=== PATIENT | female | born 1940 | race Caucasian/White ===

== ENCOUNTER → 2016-10-21 | Outpatient (CLI) | payer MEDICARE, BC ==
[~2016-10-21] MED LIST: BIOTCAP PO; CHOL50006 PO; CYCL-36 PO; DIPH25 PO; FEXO180T PO; LACTCAP7 PO; LEVO.112 PO; LORTA5 PO; MAGN500T4 PO; MELA5TAB10 PO; PREM0.45 PO; PROP60CA PO; RANI150 PO; SUMA50 PO; TAB-TAB PO; TYLE500T PO; VITA100020 IJ; WELLTAB39 PO; Z.0.COMMODE-3:1
[2016-10-21 12:48] LABS: AUTOMATED NEUTROPHIL # 2.1 TH/MM3 (1.8-7.7); BASOPHIL % 0.9 % (0.0-2.0); EOSINOPHIL # 0.1 TH/MM3 (0-0.4); HEMATOCRIT 39.1 % (35.0-46.0); HEMO FLAGS DIFF FINAL; LYMPH % 44.6 % (9.0-44.0); LYMPHOCYTE # 2.1 TH/MM3 (1.0-4.8); MEAN CELL VOLUME 95.5 FL (80.0-100.0); MEAN CORPUSCULAR HEMOGLOBIN 31.8 PG (27.0-34.0); MEAN CORPUSCULAR HGB CONC 33.3 % (32.0-36.0); MONO % 8.5 % (0.0-8.0); PLATELET COUNT 186 TH/MM3 (150-450); RED BLOOD COUNT 4.09 MIL/MM3 (4.00-5.30); RED CELL DISTRIBUTION WIDTH 12.6 % (11.6-17.2); WHITE BLOOD COUNT 4.7 TH/MM3 (4.0-11.0)
[2016-10-21 13:24] LABS: ALKALINE PHOSPHATASE 52 U/L (45-117); ALT (GPT) 28 U/L (10-53); ANION GAP 7 MEQ/L (5-15); AST (GOT) 26 U/L (15-37); BICARBONATE 28.7 MEQ/L (21.0-32.0); BLOOD UREA NITROGEN 16 MG/DL (7-18); CHLORIDE 107 MEQ/L (98-107); GLOMERULAR FILTRATION RATE 70 ML/MIN (>89); GLUCOSE,FASTING 83 MG/DL (74-99); HDL CHOLESTEROL 71.7 MG/DL (40.0-60.0); LDL CHOLESTEROL 53 MG/DL (0-99); POTASSIUM 4.2 MEQ/L (3.5-5.1); SODIUM (NA) 143 MEQ/L (136-145); TOTAL BILIRUBIN ADULT 0.5 MG/DL (0.2-1.0)
[2016-10-21 16:50] LABS: HEMOGLOBIN A1a 1.2 %; HEMOGLOBIN A1b 0.8 %; HEMOGLOBIN Ao 86.5 %; HEMOGLOBIN F 0.9 %; HEMOGLOBIN LA1C 1.8 %; HEMOGLOBIN P3 3.4 %
== END ==
LOC: PLAB 10:18
PROVIDERS: ATTEND Family Medicine
DX: E55.9 Vitamin D deficiency, unspecified (principal); E03.8 Other specified hypothyroidism; E78.4 Other hyperlipidemia; R73.01 Impaired fasting glucose
CPT/HCPCS: 36415; 80053; 80061; 82306; 83036; 84439; 84443; 85025

== ENCOUNTER → 2017-04-28 | Outpatient (CLI) | payer MEDICARE, BC ==
[2017-04-28 13:56] LABS: AUTOMATED NEUTROPHIL # 1.5 TH/MM3 (1.8-7.7); BASOPHIL % 0.7 % (0.0-2.0); EOSINOPHIL # 0.1 TH/MM3 (0-0.4); EOSINOPHIL % 2.5 % (0.0-4.0); HEMATOCRIT 39.3 % (35.0-46.0); HEMO FLAGS DIFF FINAL; LYMPH % 49.3 % (9.0-44.0); LYMPHOCYTE # 1.9 TH/MM3 (1.0-4.8); MEAN CELL VOLUME 96.6 FL (80.0-100.0); MEAN CORPUSCULAR HEMOGLOBIN 32.4 PG (27.0-34.0); MEAN CORPUSCULAR HGB CONC 33.5 % (32.0-36.0); MONO % 8.2 % (0.0-8.0); NEUT % 39.3 % (16.0-70.0); PLATELET COUNT 207 TH/MM3 (150-450); RED BLOOD COUNT 4.06 MIL/MM3 (4.00-5.30); RED CELL DISTRIBUTION WIDTH 12.8 % (11.6-17.2); WHITE BLOOD COUNT 3.9 TH/MM3 (4.0-11.0)
[2017-04-28 14:07] LABS: ANION GAP 6 MEQ/L (5-15); AST (GOT) 34 U/L (15-37); BLOOD UREA NITROGEN 19 MG/DL (7-18); CHLORIDE 104 MEQ/L (98-107); GLOMERULAR FILTRATION RATE 81 ML/MIN (>89); GLUCOSE,FASTING 84 MG/DL (74-99); POTASSIUM 4.4 MEQ/L (3.5-5.1); SODIUM (NA) 138 MEQ/L (136-145)
[2017-04-28 14:08] LABS: ALT (GPT) 40 U/L (10-53)
[2017-04-28 14:34] LABS: ALKALINE PHOSPHATASE 52 U/L (45-117); HDL CHOLESTEROL 84.5 MG/DL (40.0-60.0); LDL CHOLESTEROL 66 MG/DL (0-99); TOTAL BILIRUBIN ADULT 0.6 MG/DL (0.2-1.0)
== END ==
LOC: PLAB 09:39
PROVIDERS: ATTEND Family Medicine
DX: E78.5 Hyperlipidemia, unspecified (principal); E03.9 Hypothyroidism, unspecified; E53.8 Deficiency of other specified B group vitamins; Z86.39 Personal history of other endocrine, nutritional and metabolic disease
CPT/HCPCS: 36415; 80053; 80061; 82607; 84443; 85025

== ENCOUNTER → 2017-10-18 | Outpatient (CLI) | payer MEDICARE, BC ==
[2017-10-18 14:17] LABS: AUTOMATED NEUTROPHIL # 2.5 TH/MM3 (1.8-7.7); BASOPHIL % 0.8 % (0.0-2.0); EOSINOPHIL # 0.1 TH/MM3 (0-0.4); HEMATOCRIT 38.5 % (35.0-46.0); HEMOGLOBIN 13.1 GM/DL (11.6-15.3); LYMPH % 35.6 % (9.0-44.0); LYMPHOCYTE # 1.7 TH/MM3 (1.0-4.8); MEAN CELL VOLUME 97.2 FL (80.0-100.0); MEAN CORPUSCULAR HEMOGLOBIN 33.2 PG (27.0-34.0); MEAN CORPUSCULAR HGB CONC 34.1 % (32.0-36.0); MEAN PLATELET VOLUME 7.9 FL (7.0-11.0); MONO % 9.2 % (0.0-8.0); MONOCYTE # 0.4 TH/MM3 (0-0.9); NEUT % 52.4 % (16.0-70.0); PLATELET COUNT 217 TH/MM3 (150-450); RED BLOOD COUNT 3.96 MIL/MM3 (4.00-5.30); RED CELL DISTRIBUTION WIDTH 13.2 % (11.6-17.2); WHITE BLOOD COUNT 4.8 TH/MM3 (4.0-11.0)
[2017-10-18 14:34] LABS: ALBUMIN 3.5 GM/DL (3.4-5.0); AST (GOT) 23 U/L (15-37); BICARBONATE 26.6 MEQ/L (21.0-32.0); BLOOD UREA NITROGEN 17 MG/DL (7-18); CALCIUM 8.6 MG/DL (8.5-10.1); CHLORIDE 106 MEQ/L (98-107); CHOLESTEROL 176 MG/DL (120-200); CREATININE 0.92 MG/DL (0.50-1.00); GLOMERULAR FILTRATION RATE 59 ML/MIN (>89); GLUCOSE,FASTING 87 MG/DL (74-99); SODIUM (NA) 139 MEQ/L (136-145)
[2017-10-18 14:44] LABS: ALKALINE PHOSPHATASE 48 U/L (45-117); ALT (GPT) 26 U/L (10-53); CHOLESTEROL/ HDL RATIO 2.25 RATIO; FREE T4 1.07 NG/DL (0.76-1.46); HDL CHOLESTEROL 78.1 MG/DL (40.0-60.0); LDL CHOLESTEROL 71 MG/DL (0-99); TOTAL BILIRUBIN ADULT 0.3 MG/DL (0.2-1.0); TOTAL PROTEIN 6.5 GM/DL (6.4-8.2); TRIGLYCERIDES 134 MG/DL (42-150)
== END ==
LOC: PLAB 10:17
PROVIDERS: ATTEND Family Medicine
DX: E78.5 Hyperlipidemia, unspecified (principal); E03.9 Hypothyroidism, unspecified; E55.9 Vitamin D deficiency, unspecified
CPT/HCPCS: 36415; 80053; 80061; 82306; 84439; 84443; 85025

== ENCOUNTER → 2017-11-02 | Outpatient (CLI) | payer MEDICARE, BC ==
[~2017-11-02] MED LIST changes: +BIOT10TA PO; +CHOL1CAP26 PO; +COMMODE 3-IN-11 MIS; +CYAN1000P SQ; +CYCL5TAB PO; +DIPH25CA PO; +FEXO15TA PO; +HYDR-3516 PO; +IMIT50TA PO; +LACTTAB8 PO; +LEVO100T5 PO; +LOPE-1 PO; +MAGN400T2 PO; +MAPA500C PO; +MELA5CAP3 PO; +MULT-65 PO; +PROP80CA PO; +RANI150T PO; +SUMA50TA2 PO; +SYNT112T PO
[2017-11-02 13:24] LABS: BACTERIA, URINE RARE /hpf; BILIRUBIN, URINE NEG (NEG); BLOOD, URINE TRACE (NEG); GLUCOSE,URINE NEG (NEG); KETONE, URINE NEG (NEG); MUCUS URINE FEW /lpf (OCC); NITRITE,URINE NEG (NEG); PH, URINE 5.5 (5.0-8.5); SQUAMOUS EPITHELIAL CELL URINE 6 /hpf (0-5); URINE COLOR YELLOW (YELLW/STRAW); URINE LEUKOCYTE ESTERASE NEG (NEG)
== END ==
LOC: PLAB 09:56
PROVIDERS: ATTEND Orthopaedic Surgery Orthopaedic Surgery of the Spine
DX: M50.30 Other cervical disc degeneration, unspecified cervical region (principal)
CPT/HCPCS: 81001

== ENCOUNTER 2017-11-09 11:18 | Inpatient (IN) | payer MEDICARE, BC ==
[~2017-11-09] VITALS: Ht 170.2 cm; Wt 70.2 kg
[~2017-11-09 11:18] MED LIST changes: -BIOT10TA PO; -BIOTCAP PO; -CHOL50006 PO; -COMMODE 3-IN-11 MIS; -CYCL-36 PO; -CYCL5TAB PO; -DIPH25 PO; -FEXO180T PO; -LACTCAP7 PO; -LEVO.112 PO; -LORTA5 PO; -MAGN400T2 PO; -MAGN500T4 PO; -MELA5TAB10 PO; -MULT-65 PO; -PROP60CA PO; -RANI150 PO; -SUMA50 PO; -SUMA50TA2 PO; -SYNT112T PO; -TAB-TAB PO; -TYLE500T PO; -VITA100020 IJ; -Z.0.COMMODE-3:1
[2017-11-09] MEDS ORDERED: LACTATED RINGER'S 1000 ML IV PRN (12:00)
[2017-11-09] MEDS ORDERED: CHLORHEXIDINE GLUCONATE 2 % 1 PACK (2 CLOTHS) TOPICAL PRN (12:00)
[2017-11-09] MEDS ORDERED: METOPROLOL TARTRATE 25 MG TAB PO PRN (12:00)
[2017-11-09] MEDS ORDERED: SODIUM CHLORID 0.9% 500 ML IV PRN (12:00)
[2017-11-09] MEDS ORDERED: POVIDONE IODINE 5% (ANTISEPSIS KIT) 4 APPLICATIONS EACH NARE PRN (12:00)
[2017-11-09] MEDS ORDERED: CHLORHEXIDINE GLUCONATE 4% SOLN 120 ML BTL TOPICAL SCH (12:15)
[2017-11-09] MEDS ORDERED: ceFAZolin 2 GM PREMIX 50 ML IV SCH (12:15)
[2017-11-09] MEDS ORDERED: VANCOMYCIN 1 GM/200 ML INJ 200 ML IV ONE (12:33)
[2017-11-09] MEDS ORDERED: SCOPOLAMINE 1.5 MG PATCH ONE (12:33)
[2017-11-09] MEDS: VANCOMYCIN 1000 MG/NS 250 ML (for <70 kg) IV SCH ×4 (12:44→14:15)
[2017-11-09] MEDS ORDERED: SUGAMMADEX SODIUM 200 MG/2 ML VIAL IV PUSH ONE (12:49)
[2017-11-09] MEDS ORDERED: PROPOFOL 500 MG/50 ML INJ 150 ML ONE (12:49)
[2017-11-09] MEDS ORDERED: ACETAMINOPHEN 1000 MG/100 ML 100 ML IV ONE (12:49)
[2017-11-09] MEDS ORDERED: BUPIVACAINE/EPINEPHRINE 0.5% PF 30 ML VIAL ONE (13:08)
[2017-11-09] MEDS ORDERED: GENTAMICIN SULFATE 80 MG/2 ML VIAL ONE ×2 (13:08)
--- NOTE | 2017-11-09 16:12 | PD.OP ---
cc: Allen Mac MD; Helio Mac MD Operative Report Date of Surgery: Nov 09, 2017 Preoperative Diagnosis: Status post anterior cervical discectomy decompression and fusion, C6-7. Cervical instability, C5-6. Herniated nucleus pulposus C5-6. Right greater than left cervical radiculopathy Postoperative Diagnosis: Same Procedure: Exploration anterior cervical fusion with removal of segmental anterior instrumentation, C6-7. Anterior cervical discectomy decompression and bilateral foraminotomies with resection herniated nucleus pulposus, C5-6. Right anterior iliac crest bone graft Anesthesia: General Surgeon: Helio Mac Sanitary Inspector(s): BRETT Mnotes Operation and Findings: EBL: 100 cc INDICATIONS: This patient is a 77-year-old female with significant neck and right arm pain. She had a previous ACDF at C6-7 which had successful fusion in the past. The patient is developed arm pain and investigative studies show evidence of a herniated disc into the foramen to the right at C5-6 with mild instability. She presents for surgical treatment NOTE: Maritza Montes PA-C was present for the entire surgical procedure as my recruitment assistant. In my medical opinion her skill and care was necessary for proper management of this patient PROCEDURE: The patient was brought to the operating room and anesthetized in the supine position. This patient was positioned supine on the radiolucent table. All pressure points were protected in the anterior cervical spine and iliac crest was scrubbed with alcohol followed by Hibiclens followed by ChloraPrep. A timeout was done and antibiotics were given within 1 hour time window. Lateral radiographic images were used identifying the proper level. A left anterior incision was made in line with skin creases. The platysma was opened in line with the incision. Deep dissection continued in the interval between the carotid sheath and the esophagus. The longus-coli muscles were lifted on both sides and retractors were positioned allowing good exposure. Lateral radiographic images were used to identify the proper level. The previous plate was identified. Hand-held retractors were utilized. Sharp dissection was necessary to remove a pseudocapsule over the plate. The previous plate was identified. Using standard technique for that plate, screws were removed and then the plate was removed in retrograde fashion. The previous fusion was explored. There did not appear to be any evidence of a failed fusion. Cary style interosseous pins were placed at C5 and C6 allowing exposure to that level. The microscope was rolled into the field. A total discectomy was accomplished and posterior osteophytes were removed. The posterior longitudinal ligament and annulus was taken down. There is evidence of a disc herniation extending into the right foramen at that level. This was resected. Bilateral foraminotomies were accomplished. The endplates were squared up anticipating later bone grafting. A blunt probe could be placed out each foramen without evidence of nerve root compromise. The right iliac crest was approached. A small stab incision was made allowing percutaneous access to the anterior iliac crest. Multiple cores of cancellous bone were harvested and taken to the back table to be used for later bone grafting. The wound was irrigated anesthetized and closed with 4-0 Vicryl followed by Dermabond. The case was turned over to Dr. Allen Mac for fusion and instrumentation per his dictation. FINDINGS: There is evidence of a foraminal disc herniation to the right which was resected. No complication was appreciated. NOTE: This surgery was performed in 2 parts. The first part was the neurosurgical decompression performed under the variable power stereo microscope by the undersigned in addition to the bone graft. The second portion of the surgery will be performed by the orthopedic spine component by co -surgeon, Dr. Allen Mac for the anterior fusion with interbody cage and anterior plate. The skill of 2 surgeons was necessary to perform distinct separate procedural services as dictated above and dictated in the following operative note by Dr. Allen Mac. Helio Mac MD Nov 09, 2017 16:12
--- NOTE | 2017-11-09 17:26 | RADRPT ---
EXAM DATE/TIME: 11/09/2017 16:56 [facility] COMPARISON: [facility] ([facility]), January 08, 2015, 9:38. INDICATIONS : Hardware removal and C6-C7 fusion done in the operating room. MEDICAL HISTORY : None. SURGICAL HISTORY : None. Cervical fusion. ENCOUNTER: Initial ACUITY: 1 day PAIN SCORE: Non-responsive. LOCATION: C-spine FINDINGS: Two projection examination was performed. Intraoperative exam demonstrates an anterior cervical plate at C5-6. CONCLUSION: Anterior cervical plate at C5-6 with good alignment. Levi Daley MD on November 09, 2017 at 17:22 Board Certified Radiologist. This report was verified electronically.
[2017-11-09] MEDS ORDERED: SUMAtriptan SUCCINATE 50 MG TAB PO PRN (17:30)
[2017-11-09] MEDS ORDERED: ONDANSETRON HCL 4 MG/2 ML VIAL IV PUSH PRN (17:30)
[2017-11-09] MEDS ORDERED: diphenhydrAMINE HCL 25 MG CAP PO PRN (17:30)
[2017-11-09] MEDS ORDERED: ALUMINUM/MAGNESIUM/SIMETH 30 ML CUP PO PRN (17:30)
[2017-11-09] MEDS ORDERED: LOPERAMIDE HCL 2 MG CAP PO PRN (17:30)
[2017-11-09] MEDS ORDERED: ACETAMINOPHEN/HYDROcodone 325 MG/7.5 MG TAB PO PRN (17:30)
[2017-11-09] MEDS ORDERED: MORPHINE SULFATE 4 MG/ML INJ IV PUSH PRN (17:30)
[2017-11-09] MEDS ORDERED: FAMOTIDINE 20 MG TAB PO PRN (17:30)
[2017-11-09] MEDS ORDERED: PROMETHAZINE INJ 25 MG/ML VIAL IM PRN (17:30)
[2017-11-09] MEDS ORDERED: Post-op Orders (for Pharmacy) XX ONE (17:30)
[2017-11-09] MEDS ORDERED: HYDR-3288 PO (17:32)
[2017-11-09] MEDS ORDERED: DO NOT ADM ANY ANTICOAGULANT DRUGS PRN (17:32)
--- NOTE | 2017-11-09 17:37 | HHI.PR ---
Immediate Post Op Note Procedure Date: Nov 09, 2017 Pre Op Diagnosis: (1) Traumatic disc herniation of cervical spine (2) Degenerative joint disease of cervical spine Post Op Diagnosis: (1) Degenerative joint disease of cervical spine (2) Traumatic disc herniation of cervical spine Surgeon: Allen Mac M.D. Waiter(s): Chanel Hernandez PA-C Procedure: C5-6 ACDF with removal of C6-7 plate Complications: none Estimated blood loss: 50 cc Anesthesia: General Drains: KIM Patient to: PACU Patient Condition: Good Implant/Devices: SEE IMPLANT LOG (if applicable) Date/Time of Procedure: SEE SURGICAL CARE RECORD Allen Mac MD Nov 09, 2017 17:37
[2017-11-09] MEDS ORDERED: MIDAZOLAM HCL 2 MG/2 ML VIAL ONE (17:38)
[2017-11-09] MEDS: LACTATED RINGER'S 1000 ML INJ 1,000 ML IV SCH (17:45)
[2017-11-09] MEDS ORDERED: *morphine SULFATE 4 MG/ML PERIprocedure ONLY ONE ×2 (18:22→19:08)
--- NOTE | 2017-11-09 18:46 | MP ---
cc: Allen Mac MD, Albert W MD Saxour,Lilia LOPEZ DATE OF OPERATION: 11/09/2017 PREOPERATIVE DIAGNOSES: C5-6 right-sided foraminal herniated nucleus pulposus, spinal instability, status post C6-C7 ACDF 01/08/2015. POSTOPERATIVE DIAGNOSIS: C5-6 right-sided foraminal herniated nucleus pulposus, spinal instability, status post C6-C7 ACDF 01/08/2015. PROCEDURE: C5-C6 anterior interbody fusion, C5-6 spinet ACC anterior cervical cage; C5-C6 spinet Rauscher anterior spinal instrumentation. ANESTHESIA: Spinal. SURGEON: Allen Mac MD MANAGER CASINO: Chanel Hernandez PA-C. ESTIMATED BLOOD LOSS: 50 mL for the entire case. DRAINS: One. COMPLICATIONS: None. CONDITION: Stable. PROCEDURE IN DETAIL: Dr. Helio Mac and myself were co-surgeons. Dr. Helio Mac performed the removal of the anterior spinal fixation at C6-C7 with exploration of the anterior interbody fusion, C5-C6 anterior cervical discectomy and decompression with foraminotomy using the operative microscope and right anterior iliac crest bone grafting. I performed the orthopedic surgical stabilization and fusion procedure well described in my operative note. My assistant nurse manager, Chanel Hernandez PA-C, was present for the entire surgical case. She was medically necessary for the entire case, because of the complexity of the case. This was to facilitate the performance of the procedure. The COMMUNICATIONS AND SIGNALS SUPERVISOR at the back table was not a skill set for this case to manipulate the instruments, e.g. multiple types of soft tissue retractors, trial implants and permanent implants. The endplates at C5-C6 were prepared for fusion. The Miguel cartilage endplate was removed using angled curettes and burs. At the beginning of my portion of the procedure, the patient's motor stimulation showed that she had diminished motors to the right foot then bilateral feet, multiple changes in gases, blood pressures, positioning of the feet showed periodic improvement. I actually had anesthesiologist come into the room to see if we had to do a wake up test but the patient was able to have spontaneous returning of the motor involving the left lower extremity. The patient had involvement of both upper extremities. The patient had normal sensation bilaterally in both upper and lower extremities. With this, the procedure proceeded. The endplates were prepared for fusion. A 7 10 x 12 ACC cage was placed in the interspace. Anterior iliac crest bone grafting was used for interbody fusion. The 25 mm spinet Rauscher plate was contoured for the patient's normal cervical lordosis. Two tack pins were used for appropriate positioning of the plate. The patient had 4 screws inserted. Each of these were drilled. These screws were 14 mm in length, 4.0 mm in outer diameter fixed angle screws. These screws were inserted under fluoroscopic guidance. Each screw head was appropriately locked to the plate. Intraoperative fluoroscopy AP and lateral plane confirmed satisfactory positioning of the bone graft at C5-C6. satisfactory position of the ACC cage at C5-C6, satisfactory position of the anterior spinal instrumentation at C5-C6, satisfactory removal of the anterior spinal instrumentation at C6-C7 with maintenance of satisfactory interbody fusion and ACC cage at C6-C7. All bleeders were then coagulated with bipolar coagulation. Also, Surgicel was used. The neck was irrigated with copious amounts of sterile saline antibiotic solution. The wound was closed over a 10-Malian Rober drain. The wound was closed in multiple layers using 3-0 Vicryl and skin was approximated with running subcuticular 4-0 Vicryl. Skin was approximated with Dermabond. Sterile dressings were applied. The patient was placed in [place] cervical supine orthosis. The patient tolerated the procedure well and went to the recovery room in stable and satisfactory condition. MD ELIZABETH Zelaya/ , 05:37 PM , 06:44 PM
[2017-11-09 20:19] VITALS: BP 187/84; PULSE 69; RESP 18; TEMP 98.2; O2SAT 98
[2017-11-09] MEDS ORDERED: ZOLPIDEM TARTRATE 5 MG TAB PO PRN (21:00)
[2017-11-09 21:40] VITALS: O2SAT 97
[2017-11-09] MEDS: ACETAMINOPHEN/HYDROcodone 325 MG/7.5 MG TAB PO PRN (23:27)
[2017-11-10] VITALS: BP 178/85; PULSE 68; RESP 18; TEMP 97.6; O2SAT 97
[2017-11-10 04:00] VITALS: BP 171/73; PULSE 66; RESP 18; TEMP 98.1; O2SAT 95
[2017-11-10] MEDS: ACETAMINOPHEN/HYDROcodone 325 MG/7.5 MG TAB PO PRN ×2 (04:32→11:04)
[2017-11-10] MEDS: LACTATED RINGER'S 1000 ML INJ 1,000 ML IV SCH (05:49)
[2017-11-10] MEDS ORDERED: LEVOTHYROXINE SODIUM 100 MCG TAB PO SCH (06:00)
--- NOTE | 2017-11-10 07:09 | PD.ORT.PN ---
Subjective Subjective Remarks pt is doing well, post op neck pain pre-operative right arm pain has resolved, no hip pain Objective Vitals Vital Signs Date Time Temp Pulse Resp B/P (MAP) Pulse Ox O2 Delivery O2 Flow Rate FiO2 11/10/17 05:32 18 11/10/17 04:00 98.1 66 18 171/73 (105) 95 11/10/17 00:00 97.6 68 18 178/85 (116) 97 11/09/17 21:40 Nasal Cannula 2.00 11/09/17 20:19 98.2 69 18 187/84 (118) 98 11/09/17 19:50 64 15 96 Nasal Cannula 2 11/09/17 19:45 97.8 65 15 150/77 (101) 96 Nasal Cannula 2 11/09/17 19:30 64 15 156/80 (105) 95 Nasal Cannula 2 11/09/17 19:15 63 15 159/82 (107) 95 Nasal Cannula 2 11/09/17 19:13 15 11/09/17 19:00 64 15 162/80 (107) 95 Nasal Cannula 2 11/09/17 18:45 64 15 169/86 (113) 95 Nasal Cannula 2 11/09/17 18:30 63 14 179/96 (123) 96 Nasal Cannula 2 11/09/17 18:27 15 11/09/17 18:15 67 14 175/84 (114) 95 Nasal Cannula 2 11/09/17 18:00 68 14 178/89 (118) 98 Nasal Cannula 2 11/09/17 17:45 71 14 168/84 (112) 98 Nasal Cannula 3 11/09/17 17:30 97.8 75 14 174/79 (110) 96 Nasal Cannula 3 11/09/17 12:22 98.8 67 16 158/75 (102) 96 I/O 11/09/17 11/09/17 11/09/17 11/10/17 11/10/17 11/10/17 07:00 15:00 23:00 07:00 15:00 23:00 Intake Total 2100 ml 480 ml Output Total 130 ml 25 ml Balance 1970 ml 455 ml Intake Oral 480 ml IV Total 100 ml Other 2000 ml Output Drainage Total 80 ml 25 ml Estimated Blood Loss 50 ml # Voids 2 # Bowel Movements 0 Objective Remarks seen and examined by Dr. Allen Mac [place] collar in place dressing dry and intact motor is +5/5 to UE Assessment & Plan Assessment and Plan POD # 1 s/p C5-6 ACDF with removal C6-7 plate [place] collar x 4 weeks Mehdi rx in chart discharge home today orthopedically stable Chanel Hernandez Nov 10, 2017 07:09
[2017-11-10 08:00] VITALS: BP 144/83; PULSE 72; RESP 17; TEMP 98.2; O2SAT 93
[2017-11-10] MEDS ORDERED: PROPRANOLOL HCL LA 80 MG CAP PO SCH (09:00)
[2017-11-10] MEDS ORDERED: MULTIVITAMINS/MINERALS THERAPEUTIC TAB PO SCH (09:00)
[2017-11-10] MEDS ORDERED: buPROPion HCL 150 MG SUSTAINED RELEASE TAB PO SCH (09:00)
[2017-11-10] MEDS ORDERED: ESTROGENS CONJUGATED 0.45 MG PO SCH (09:00)
[2017-11-10] MEDS ORDERED: LORATADINE 10 MG TAB PO SCH (09:00)
== END 2017-11-10 11:16 | disposition home or self-care (01) | DRG 473 ==
LOC: HSDI 11:18 → N06A 20:05
PROVIDERS: ADMIT Orthopaedic Surgery Orthopaedic Surgery of the Spine; ATTEND Orthopaedic Surgery Orthopaedic Surgery of the Spine
PROC: 0QB20ZZ Excision of Right Pelvic Bone, Open Approach (ICD-10-PCS; 2017-11-09)
PROC: 0RT30ZZ Resection of Cervical Vertebral Disc, Open Approach (ICD-10-PCS; 2017-11-09)
PROC: 0RP104Z Removal of Internal Fixation Device from Cervical Vertebral Joint, Open Approach (ICD-10-PCS; 2017-11-09)
PROC: 0RG10A0 Fusion of Cervical Vertebral Joint with Interbody Fusion Device, Anterior Approach, Anterior Column, Open Approach (ICD-10-PCS; principal; 2017-11-09 13:35)
DX: M50.122 Cervical disc disorder at C5-C6 level with radiculopathy (principal); I10 Essential (primary) hypertension; M53.2X2 Spinal instabilities, cervical region; M47.22 Other spondylosis with radiculopathy, cervical region; F32.9 Major depressive disorder, single episode, unspecified; Z98.1 Arthrodesis status
CPT/HCPCS: 72040; 76000; 94150; C1713; J0131; J0690; J1580; J2250; J2270; J3010; J3370; J7050; J7120; L0150